=== PATIENT | male | born 1995 | race African-American/Black ===

== ENCOUNTER 2017-02-26 16:00 | Emergency (ER) | payer BC | END 2017-02-26 18:39 | disposition home or self-care (01) | LOC: D.ER 16:00 | DX: J11.1 Influenza due to unidentified influenza virus with other respiratory manifestations (principal); F90.9 Attention-deficit hyperactivity disorder, unspecified type ==

== ENCOUNTER 2017-11-13 21:07 | Emergency (ER) | payer MEDICAID ==
[~2017-11-13] VITALS: Ht 177.8 cm; Wt 75.0 kg
[2017-11-13 21:30] VITALS: Ht 177.8 cm; Wt 75.0 kg
[2017-11-13 22:18] LABS: BASOPHILS 0 % (0-2); EOSINOPHILS 0.5 % (0-7); HEMATOCRIT 41.2 % (42.0-54.0); HEMOGLOBIN 14.3 g/dL (13.5-17.5); IMMATURE GRANULOCYTES 0.2 % (0-5); LYMPHOCYTES 23.3 % (15-50); MCH 28.7 pg (26.0-34.0); MCHC 34.7 g/dL (31.0-37.0); MCV 82.7 fL (80.0-100.0); MEAN PLATELET VOLUME 10.1 fL (7.4-10.4); MONOCYTES 7.7 % (2-11); NEUTROPHILS 68.3 % (40-80); PLATELET COUNT 174 10x3/uL (130-400); RBC 4.98 10x6/uL (4.20-6.10); RDW 13.9 % (11.5-14.5); WBC 6.5 10x3/uL (4.8-10.8)
[2017-11-13] MEDS ORDERED: ZPAK PO (22:38)
[2017-11-13] MEDS ORDERED: BENZONATATE200 MG PO (22:38)
[2017-11-13] MEDS ORDERED: ZOFRAN ODT4 MG/UDTAB PO (22:39)
[2017-11-13 22:42] LABS: ALBUMIN 3.7 g/dL (3.4-5.0); ALKALINE PHOSPHATASE 59 U/L (46-116); ALT (SGPT) 25 U/L (10-68); BILIRUBIN - TOTAL 0.51 mg/dL (0.2-1.3); CALC OSMOLALITY 269 mosm/kg (275-300); CALCIUM 8.5 mg/dL (8.5-10.1); CARBON DIOXIDE 27.4 mmol/L (21.0-32.0); CHLORIDE - SERUM 101 mmol/L (98-107); CREATININE - SERUM 1.2 mg/dL (0.6-1.3); GLUCOSE 89 mg/dL (74-106); POTASSIUM - SERUM 3.5 mmol/L (3.5-5.1); PROTEIN - SERUM 7.6 g/dL (6.4-8.2); SODIUM 136 mmol/L (136-145); UREA NITROGEN 11 mg/dL (7-18); eGFR NON AFRICAN AMERICAN 80 mL/min (90-120)
[2017-11-13 23:53] VITALS: BP 111/67
== END 2017-11-13 23:54 | disposition home or self-care (01) ==
LOC: D.ER 21:07
PROVIDERS: Family Medicine
DX: J40 Bronchitis, not specified as acute or chronic (principal); R50.9 Fever, unspecified; R05 Cough; F17.200 Nicotine dependence, unspecified, uncomplicated

== ENCOUNTER 2018-03-12 16:33 | Emergency (ER) | payer OTHER ==
[~2018-03-12] VITALS: Ht 177.8 cm; Wt 79.5 kg
[~2018-03-12 16:33] MED LIST: BENZONATATE200 MG PO; ZOFRAN ODT4 MG/UDTAB PO; ZPAK PO
[2018-03-12 16:41] VITALS: Ht 177.8 cm; Wt 79.5 kg
[2018-03-12] MEDS ORDERED: TYLENOL W/CODEI1 TAB PO (17:53)
[2018-03-12] MEDS ORDERED: CLEOCIN HCL300 MG PO (17:53)
[2018-03-12] MEDS ORDERED: VOLTAREN75 MG PO (17:55)
[2018-03-12 18:30] VITALS: BP 139/76
== END 2018-03-12 18:30 | disposition home or self-care (01) ==
LOC: D.ER 16:33
DX: L02.01 Cutaneous abscess of face (principal); F17.200 Nicotine dependence, unspecified, uncomplicated

== ENCOUNTER 2018-03-14 21:59 | Emergency (ER) | payer SELFPAY ==
[2018-03-12 16:41] VITALS: Ht 177.8 cm; Wt 77.3 kg
[~2018-03-14] VITALS: Ht 177.8 cm; Wt 77.3 kg
[~2018-03-14 21:59] MED LIST changes: +CLEOCIN HCL300 MG PO; +TYLENOL W/CODEI1 TAB PO; +VOLTAREN75 MG PO
[2018-03-14 22:56] VITALS: BP 111/81
== END 2018-03-14 22:56 | disposition home or self-care (01) ==
LOC: D.ER 21:59
DX: L02.01 Cutaneous abscess of face (principal); F17.200 Nicotine dependence, unspecified, uncomplicated

== ENCOUNTER 2018-10-13 11:05 | Emergency (ER) | payer SELFPAY ==
[~2018-10-13] VITALS: Ht 177.8 cm; Wt 79.5 kg
[2018-10-13 11:07] VITALS: Ht 177.8 cm; Wt 79.5 kg
[2018-10-13] MEDS ORDERED: CLEOCIN HCL300 MG PO (12:17)
[2018-10-13 13:08] VITALS: BP 103/58
== END 2018-10-13 13:00 | disposition home or self-care (01) ==
LOC: D.ER 11:05
DX: M27.2 Inflammatory conditions of jaws (principal)